=== PATIENT | female | born 1965 | race African-American/Black ===

== ENCOUNTER 2017-05-12 22:12 | Inpatient (IN) | payer BC, OTHER ==
[~2017-05-12] VITALS: Ht 157.5 cm; Wt 73.3 kg
--- NOTE | ~2017-05-12 | EKG ---
[address] [address] ELECTROCARDIOGRAM REPORT Name: MARILEE MOTA Room #: 236-P ADM IN M.R.#: [id number] Admission: 05/13/17 Attend Phys: Abel Bains MD Discharge: Date of : 65 Report #: [id number] THIS REPORT FOR: //name// [facility] Test Date: 2017-05-15 Test Time: 15:08:17 Pat Name: MARILEE MOTA Department: Room: 236 Gender: F Matrix Inspector: Linden CISNEROS : 1965 Requested By: Taylor Estrella Order Number: [id number] MD: Yadiel Mahmood Measurements Intervals [place] Rate: 91 P: 58 ND: 160 QRS: -17 QRSD: 132 T: 31 QT: 395 QTc: 487 Interpretive Statements Sinus rhythm Right bundle branch block, new Compared to ECG 05/14/2017 09:08:41 Right bundle-branch block now present Electronically Signed On 05-15-2017 15:51:53 PLASTICS SEASONER OPERATOR by Yadiel Mahmood [email or web address] <ELECTRONICALLY SIGNED> By: Yadiel Mahmood MD 05/15/17 1551 1508 1508 Yadiel Mahmood MD /AMANDO
--- NOTE | ~2017-05-12 | HC ---
[facility] [place] [address] CONSULTATION Name: MARILEE MOTA Room #: 211-P [facility] IN M.R.#: [id number] Admission: 05/13/17 Attend Phys: Abel Bains MD Discharge: Date of : 65 Report #: [id number] THIS REPORT FOR: //name// CC: Liam Bains DATE OF SERVICE: 05/13/2017 REASON FOR CONSULTATION: Chest pain. HISTORY OF PRESENT ILLNESS: The patient is a 52-year-old woman with history of hypertension, dyslipidemia and reflux disease. She exercises regularly, although found that last week on Monday when she was on her [place] track, she developed midsternal chest pain radiating to her arms. She stopped exercising, laid down and the pain resolved. She decided not to exercise after that, although yesterday had the same recurrent pain while carrying groceries in from the grocery store. She sat down and the pain resolved. Pain waxed and waned throughout the evening last night, it became more severe around 10:00-11:00 p.m. and paramedics were summoned. She was given aspirin and several sequential nitroglycerin tablets with relief of her pain. Her troponin was minimally elevated at 0.07. She denies heart failure symptoms including orthopnea, paroxysmal nocturnal dyspnea, or lower extremity edema. She denies palpitations, near syncope or syncope. ALLERGIES: No known drug allergies. MEDICATIONS: Include amlodipine 10 mg daily, omeprazole 10 mg daily, phentermine 37.5 mg daily. PAST MEDICAL HISTORY: Medical records have been reviewed and include a history of hypertension, dyslipidemia, reflux disease. SOCIAL HISTORY: She is a former smoker. She works as a teacher. . FAMILY HISTORY: Notable for mother at 41 of heart related problems. Sister at 42 from complications related to diabetes. REVIEW OF SYSTEMS: All systems negative except as that noted above. PHYSICAL EXAMINATION: GENERAL: A pleasant woman who is pain free. VITAL SIGNS: Blood pressure is 147/90, heart rate of 84 and regular. She is afebrile, 5 feet 2 inches tall, 143 pounds. HEENT: There are neither xanthelasma, subcutaneous xanthomata, oral mucosal or digital cyanosis or kyphoscoliosis present. CHEST: Clear to auscultation and percussion. [facility] [address] [place] [address] CONSULTATION Name: MARILEE MOTA Room #: 211-P [facility] IN M.R.#: [id number] Admission: 05/13/17 Attend Phys: Abel Bains MD Discharge: Date of : 65 Report #: [id number] CARDIAC: Reveals a regular rate and rhythm with normal S1, S2. No murmurs or rubs. ABDOMEN: Soft and nontender. EXTREMITIES: Without cyanosis, clubbing or edema. Radial pulses are 2+. NEUROLOGIC: She is alert with a nonfocal exam. LABORATORY DATA: EKG demonstrates sinus rhythm with fairly diffuse nonspecific ST-segment changes. Sodium is 140, potassium 2.9 and has been supplemented. Creatinine 0.9, glucose 139. Troponin 0.07. White count 5.5, hemoglobin 14, hematocrit 41, platelet count 243. Chest x-ray is normal. IMPRESSION: 1. Chest pain consistent with unstable angina. 2. Hypertension. 3. Dyslipidemia. 4. Elevated blood sugar. 5. Family history of premature coronary artery disease. RECOMMENDATIONS: 1. Therapy with anticoagulants and antiplatelets; nitrates, beta blockade. 2. Coronary angiography. The procedure was discussed in detail including its associated risks. After a thorough discussion of the procedure, its risks and alternatives and after answering her questions, she is agreeable to proceeding. Thank you for asking me to participate in her care. <ELECTRONICALLY SIGNED> By: Holland Horowitz MD, FACC 05/15/17 0907 0903 1122 Holland Horowitz MD, FACC /nt
--- NOTE | ~2017-05-12 | EKG ---
[address] [address] ELECTROCARDIOGRAM REPORT Name: MARILEE MOTA Room #: 211-P ADM IN M.R.#: [id number] Admission: 05/13/17 Attend Phys: Abel Bains MD Discharge: Date of : 65 Report #: [id number] THIS REPORT FOR: //name// [facility] ED Test Date: 2017-05-12 Test Time: 22:39:53 Pat Name: MARILEE MOTA Department: Room: 211 Gender: F Rotor Balancer: BARRETT : 1965 Requested By: Mart Morales Order Number: [id number] MD: Holland Horowitz Measurements Intervals [place] Rate: 75 P: 38 GA: 187 QRS: 22 QRSD: 85 T: 49 QT: 439 QTc: 491 Interpretive Statements Sinus rhythm Minimal ST depression, anterolateral leads Borderline prolonged QT interval Compared to ECG 07/26/2015 19:40:54 ST (T wave) deviation now present Electronically Signed On 05-13-2017 14:38:55 BEET TOPPER by Holland Horowitz [email or web address] <ELECTRONICALLY SIGNED> By: Holland Horowitz MD, [facility] 05/13/17 1438 2239 Holland Horowitz MD, [facility] /EPI
--- NOTE | ~2017-05-12 | EKG ---
[address] [address] ELECTROCARDIOGRAM REPORT Name: MARILEE MOTA Room #: 236-P ADM IN M.R.#: [id number] Admission: 05/13/17 Attend Phys: Liam Barr DO Discharge: Date of : 65 Report #: [id number] THIS REPORT FOR: //name// [facility] Test Date: 2017-05-16 Test Time: 07:02:39 Pat Name: MARILEE MOTA Department: Room: 236 P Gender: F Semiautomatic Stitcher Operator: YAMEL : 1965 Requested By: Taylor Estrella Order Number: [id number] MD: Yadiel Mahmood Measurements Intervals [place] Rate: 89 P: [place]: QRS: -43 QRSD: 116 T: 34 QT: 408 QTc: 497 Interpretive Statements Sinus rhythm Incomplete right bundle branch block Inferolateral infarct, old Compared to ECG 05/15/2017 15:08:17 Electronically Signed On 05-16-2017 8:13:34 PANTOMIMIST by Yadiel Mahmood [email or web address] <ELECTRONICALLY SIGNED> By: Yadiel Mahmood MD 05/16/17 08 1 1 Yadiel Mahmood MD /AMANDO
--- NOTE | ~2017-05-12 | 2DMMODE ---
[facility] [address] [place] [address] 2 D/M-MODE ECHOCARDIOGRAM Name: MARILEE MOTA Room #: 211-P ADM IN .R.#: [id number] Admission: 05/13/17 Attend Phys: Abel Bains MD Discharge: Date of : 65 Date of Service: 05/13/17 1418 Report #: [id number] THIS REPORT FOR: //name// APPROVED REPORT Study performed: 05/13/2017 09:42:59 EXAM: Comprehensive 2D, Doppler, and color-flow Echocardiogram Patient Location: Bedside Room #: 211 Status: routine BSA: 1.67 HR: 94 bpm BP: 147/94 mmHg Other Information Study Quality: Adequate Indications Hypertension/HDD Previous tobacco, Hyperlipidemia, Shortness of Air 2D Dimensions LVEF(%): 61.95 (>50%) IVSd: 8.03 (7-11mm) LVOT Diam: 19.45 (18-24mm) LVDd: 36.76 mm PWd: 8.34 (7-11mm) Ascending Ao: 23.79 (22-36mm) LVDs: 24.75 (25-40mm) Left Atrium: 27.66 (27-40mm) Aortic Root: 25.68 mm IVC: 1.60 mm Ramos's LVEF: 61.95 % Volumes Left Atrial Volume (Systole) Single Plane 4CH: 24.48 mL Aortic Valve AoV Peak Lex.: 1.40 m/s AO Peak Gr.: 7.81 mmHg LVOT Max P.78 mmHg LVOT Max V: 1.09 m/s JOSEFA Vmax: 2.32 cm2 Mitral Valve E/A Ratio: 1.1 MV Decel. Time: 170.92 ms [facility] [place] [address] 2 D/M-MODE ECHOCARDIOGRAM Name: MARILEE MOTA Room #: [facility] IN ..#: [id number] Admission: 05/13/17 Attend Phys: Abel Bains MD Discharge: Date of : 65 Date of Service: 05/13/17 1418 Report #: [id number] MV E Max Lex.: 0.79 m/s MV A Lex.: 0.72 m/s MV PHT: 49.57 ms IVRT: 87.66 ms TDI E/Lateral E': 6.58 Lateral E' Lex.: 0.12 m/s Pulmonary Vein P Vein S: 0.60 m/s P Vein A: 0.37 m/s P Vein D: 0.32 m/s P Vein A Dur.: 143.0 msec P Vein S/D Ratio: 1.88 Left Ventricle The left ventricle is normal size. Regional wall motion is not well visualized but grossly normal. There is normal left ventricular wall thickness. The left ventricular systolic function is normal. The left ventricular ejection fraction is within the normal range. LVEF is 55-60%. Grade II - pseudonormal filling dynamics. Right Ventricle The right ventricle is normal size. The right ventricular systolic function is normal. Atria The left atrium size is normal. The right atrium size is normal. Aortic Valve The aortic valve is normal in structure. No aortic regurgitation is present. There is no aortic valvular stenosis. Mitral Valve The mitral valve is normal in structure. There is no mitral valve regurgitation noted. No evidence of mitral valve stenosis. Tricuspid Valve The tricuspid valve is normal in structure. There is no tricuspid valve regurgitation noted. Pulmonic Valve The pulmonary valve is normal in structure. There is no pulmonic valvular regurgitation. [facility] [address] [address] 2 D/M-MODE ECHOCARDIOGRAM Name: MARILEE MOTA Room #: 211-P [facility] IN [facility]#: [id number] Admission: 05/13/17 Attend Phys: Abel Bains MD Discharge: Date of : 65 Date of Service: 05/13/17 1418 Report #: [id number] The aortic root is normal in size. IVC is not well visualized. Pericardium There is no pericardial effusion. <Conclusion> The left ventricular systolic function is normal. Regional wall motion is not well visualized but grossly normal. LVEF is 55-60%. Grade II - pseudonormal filling dynamics. The aortic valve is normal in structure. No aortic regurgitation or stenosis The mitral valve is normal in structure. No mitral valve regurgitation noted. Pulmonary artery pressure could not be reliably ascertained There is no pericardial effusion. <ELECTRONICALLY SIGNED> By: Holland Horowitz MD, [facility] 05/13/17 1418 1418 1418 Holland Horowitz MD, FACC /INF
--- NOTE | ~2017-05-12 | CATHLAB ---
[facility] [place] [address] INVASIVE PROCEDURE REPORT Name: MARILEE MOTA Room #: 211-P ADM IN ..#: [id number] Admission: 05/13/17 Attend Phys: Abel Bains MD Discharge: Date of : 65 Date of Service: 05/15/17 0842 Report #: [id number] THIS REPORT FOR: //name// APPROVED REPORT Patient Details Patient Status: In-Patient Room #: The patient is a 52 year-old female Event Personnel Holland Horowitz Gm/Svp Global Publisher Business, Bessie Borja, Iqra Galindo Barrett, Susan RN RN, Norris Yates clinical biochemical geneticist Performed Art Access - R femoral artery* 96120 Initial Mod Sed Same Phys/QHP Gr5y 720879 Left Heart Cath w/or w/o Coronaries [id number] [facility] Hemostasis w/ Mynx Procedure Narrative The Right Groin^ was infiltrated with 1% Lidocaine subcutaneous anesthesia. A PINNACLE 6FR Sheath #[id number] sheath was inserted into the RFA^. Coronary angiography was performed using coronary diagnostic catheters. The right coronary system was accessed and visualized with a JR4 catheter. The left coronary system was accessed and visualized with a JL4 catheter. The left ventricle was accessed and visualized with a Pigtail catheter. Left ventricular/Aortic Valve gradient assessed via catheter pullback. Left ventriculogram was performed in 30 degree projection. Closure device was deployed with a 6 Fr MYNXGRIP 6/7F #[id number]. The patient tolerated the procedure well and there were no complications associated with the procedure. There was no hematoma. Intraoperative Conscious Sedation Sedation start time: 10:46 Case end Time: 11:08 Fentanyl 25 mcg Versed 2 mg Fluoro Time: 1.52 minutes Dose: DAP 2133.60 cGycm2 271 mGy Contrast Type and Amount: Omnipaque 100 ml Coronary Angiography The patient's coronary anatomy is right dominant. [facility] [address] [place] [address] INVASIVE PROCEDURE REPORT Name: MARILEE MOTA Room #: 211-P [facility] IN ..#: [id number] Admission: 05/13/17 Attend Phys: Abel Bains MD Discharge: Date of : 65 Date of Service: 05/15/17 0842 Report #: [id number] Diagnostic Cath Left Main Moderate in size and angiographically normal LAD Severe, long variable 75-90% mid LAD stenosis just after the first septal perforating branch Diagonal 1 Small, bifurcating proximally with mild plaquing Diagonal 2 Small to moderate with a proximal 80% stenosis Circumflex Sequential 90-95% proximal to mid stenoses Ostial 60% circumflex stenosis OM1 Single, large marginal branch with 30-40% proximal plaquing Right Coronary Right coronary dominant with proximal 20-30% plaquing. 70% mid vessel stenosis R PDA Mild plaquing RPLV Mild plaquing Left Ventriculography The left ventricle is normal in size with normal contractility. The left ventricular ejection fraction is estimated to be 55-60%. Left ventricular wall motion abnormalities are not present. There is no mitral insufficiency. Hemodynamics The aortic pressure is 183/82 mmHg with a mean of 122 mmHg. The left ventricular pressure is 179/15 mmHg with a mean of mmHg. The left ventricular end diastolic pressure is 39 mmHg. Conclusion 1. Normal global and regional left ventricular systolic function 2. Severe multivessel coronary disease Recommendations Aggressive Medical Therapy CABG <ELECTRONICALLY SIGNED> By: Holland Horowitz MD, FACC 05/15/1742 1 1 Holland Horowitz MD, FACC /INF
--- NOTE | ~2017-05-12 | EKG ---
[address] [address] ELECTROCARDIOGRAM REPORT Name: MARILEE MOTA Room #: 211-P ADM IN M.R.#: [id number] Admission: 05/13/17 Attend Phys: Abel Bains MD Discharge: Date of : 65 Report #: [id number] THIS REPORT FOR: //name// [facility] Test Date: 2017-05-14 Test Time: 09:08:41 Pat Name: MARILEE MOTA Department: Room: 211 P Gender: F Transportation Maintenance Operator: ELA : 1965 Requested By: Taylor Estrella Order Number: [id number] MD: Holland Horowitz Measurements Intervals [place] Rate: 83 P: 57 [place]: 171 QRS: 15 QRSD: 108 T: -4 QT: 414 QTc: 487 Interpretive Statements Sinus rhythm Minimal ST depression Borderline prolonged QT interval Compared to ECG 05/13/2017 08:19:21 No significant change was found Electronically Signed On 05-14-2017 11:32:48 AUDIO VISUAL ENGINEER by Holland Horowitz [email or web address] <ELECTRONICALLY SIGNED> By: Holland Horowitz MD, [facility] 05/14/17 1132 0908 0908 Holland Horowitz MD, [facility] /EPI
--- NOTE | ~2017-05-12 | EKG ---
[address] [address] ELECTROCARDIOGRAM REPORT Name: MARILEE MOTA Room #: 211-P ADM IN M.R.#: [id number] Admission: 05/13/17 Attend Phys: Abel Bains MD Discharge: Date of : 65 Report #: [id number] THIS REPORT FOR: //name// [facility] Test Date: 2017-05-13 Test Time: 08:19:21 Pat Name: MARILEE MOTA Department: Room: 211 Gender: F Food Production Manager: ELODIA : 1965 Requested By: Alona Luke Order Number: [id number] MD: Holland Horowitz Measurements Intervals [place] Rate: 82 P: 36 [place]: 149 QRS: 2 QRSD: 83 T: 44 QT: 384 QTc: 449 Interpretive Statements Sinus rhythm Probable left atrial enlargement Probable LVH with secondary repol abnrm Compared to ECG 07/26/2015 19:40:54 No significant change was found Electronically Signed On 05-13-2017 14:42:14 AUTOMOTIVE TITLE CLERK by Holland Horowitz [email or web address] <ELECTRONICALLY SIGNED> By: Holland Horowitz MD, [facility] 05/13/17 1442 8 8 Holland Horowitz MD, [facility] /EPI
[~2017-05-12 22:12] MED LIST: ATENOLOL 25 MG25 M1 PO; ATENOLOL 50MG T50 M1 PO; DARVOCET-N 1001 EACH PO; DOXYCYCLINE 10100 MG PO; NAPROSYN500 MG PO; NORCO 5-325 TA1 EACH PO; OMEPRAZOLE10 MG PO; PROVENTIL HFA6.7 G1 INH; RANITIDINE 150150 M1 PO; TUSSIONEX PENN473 ML PO; ULTRAM 50MG TAB50 MG PO; ZANTAC 150MG T150 M1 PO; ZOFRAN ODT4 MG PO; ZOFRAN4 MG PO; ZPAK PO
[2017-05-12 22:13] VITALS: BP 173/100
[2017-05-12] MEDS ORDERED: NORVASC5 MG PO (22:22)
[2017-05-12] MEDS ORDERED: ADIPEX-P37.5 MG PO (22:23)
[2017-05-12 22:46] LABS: ABSOLUTE NEUTROPHILS 2.6 thou/uL (1.4-8.2); BASOPHILS 0.7 % (0.0-2.0); EOSINOPHILS 3.4 % (0.0-3.0); HEMATOCRIT 41.8 % (37.0-47.0); LYMPHOCYTES 38.9 % (24.0-44.0); MCH 26.8 pg (26.0-34.0); MCHC 33.4 g/dL (28.0-37.0); MCV 80.3 fL (80.0-100.0); MONOCYTES 9.4 % (1.0-8.0); PLATELET COUNT 243 thou/uL (150-400); POLYS 47.6 % (36.0-66.0); RDW 14.4 % (10.5-14.5); WBC 5.5 thou/uL (4.0-11.0)
[2017-05-12 22:51] LABS: CALCIUM 9.2 mg/dL (8.5-10.1); CREATININE 0.9 mg/dL (0.6-1.0)
[2017-05-12 22:52] LABS: POTASSIUM 2.9 mmol/L (3.5-5.1)
[2017-05-12 22:59] LABS: TROPONIN-I 0.07 ng/mL (<0.06)
[2017-05-13] VITALS (19 sets, daily range): BP systolic 98–161; BP diastolic 53–98
[2017-05-13] MEDS ORDERED: NORVASC10 MG PO (01:40)
[2017-05-13] MEDS ORDERED: NAPROSYN500 MG PO (03:21)
[2017-05-13 11:24] LABS: ANION GAP 8 mmol/L (7-16); BUN 15 mg/dL (7-18); CALCIUM 8.7 mg/dL (8.5-10.1); CHLORIDE 105 mmol/L (98-107); CHOLESTEROL 218 mg/dL (<200); CO2 26 mmol/L (21-32); CREATININE 0.8 mg/dL (0.6-1.0); GLUCOSE 106 mg/dL (74-106); HDL CHOLESTEROL 55 mg/dL (>40); LDL CHOLESTEROL 159 mg/dL (<100); SODIUM 139 mmol/L (136-145); TRIGLYCERIDE 24 mg/dL (<150); VLDL 5 mg/dL (<40)
[2017-05-13 11:31] LABS: POTASSIUM 3.9 mmol/L (3.5-5.1)
[2017-05-13 11:33] LABS: TROPONIN-I 0.63 ng/mL (<0.06)
[2017-05-14] VITALS (8 sets, daily range): BP systolic 98–134; BP diastolic 43–90
[2017-05-14 02:06] LABS: GLYCOHEMOGLOBIN (HGB A1C) 5.4 % (4.8-5.6)
[2017-05-14 06:05] LABS: HEMATOCRIT 39.8 % (37.0-47.0); HEMOGLOBIN 12.7 gm/dL (12.0-15.0); MCHC 31.9 g/dL (28.0-37.0); MCV 81.6 fL (80.0-100.0); RBC 4.87 mil/uL (4.20-5.00); RDW 14.9 % (10.5-14.5); WBC 4.9 thou/uL (4.0-11.0)
[2017-05-14 06:16] LABS: APTT 25.9 Seconds (24.5-32.8); PROTIME 10.1 Seconds (9.3-11.4)
[2017-05-14 06:27] LABS: CALCIUM 8.6 mg/dL (8.5-10.1); CREATININE 0.9 mg/dL (0.6-1.0); POTASSIUM 4.6 mmol/L (3.5-5.1)
[2017-05-14 23:58] LABS: URINE BILIRUBIN NEGATIVE (Negative); URINE BLOOD TRACE (Negative); URINE CLARITY CLEAR; URINE COLOR YELLOW; URINE GLUCOSE-RANDOM* NEGATIVE (Negative); URINE KETONES NEGATIVE (Negative); URINE NITRITE-REFLEX NEGATIVE (Negative); URINE PROTEIN (DIPSTICK) NEGATIVE (Negative); URINE SPECIFIC GRAVITY >= 1.030 (1.005-1.035); URINE UROBILINOGEN 0.2 E.U./dl (0.2-1.0)
[2017-05-15] VITALS (11 sets, daily range): BP systolic 88–142; BP diastolic 66–99
[2017-05-15 00:01] LABS: URINE LEUKOCYTES-REFLEX TRACE (Negative)
[2017-05-15 12:25] LABS: MCHC 32.8 g/dL (28.0-37.0); WBC 7.3 thou/uL (4.0-11.0)
[2017-05-15 12:27] LABS: MCH 26.4 pg (26.0-34.0); MCV 80.7 fL (80.0-100.0); RBC 2.61 mil/uL (4.20-5.00); RDW 13.9 % (10.5-14.5)
[2017-05-15 12:28] LABS: HEMATOCRIT 21.1 % (37.0-47.0); HEMOGLOBIN 6.9 gm/dL (12.0-15.0)
[2017-05-15 12:42] LABS: INR 1.6; PROTIME 15.9 Seconds (9.3-11.4)
[2017-05-15 12:43] LABS: APTT 26.7 Seconds (24.5-32.8); FIBRINOGEN 153.6 mg/dL (210-360)
[2017-05-15 13:22] LABS: POC BE 0 mmol/L (-2.0 to +3.0); POC CA IONIZED 4.6 mg/dL (4.5-5.3); POC GLUCOSE 134 mg/dL (70-99); POC HCO3 25.9 mmol/L (22.0-26.0); POC HEMOGLOBIN 11.6 g/dL (12.0-15.0); POC POTASSIUM 3.6 mmol/L (3.5-5.1); POC SODIUM 140 mmol/L (136-145); POC pCO2 45.5 mmHg (35.0-45.0); POC pH 7.362 (7.360-7.450)
[2017-05-15 13:22] LABS: POC BE 3 mmol/L (-2.0 to +3.0); POC CA IONIZED 4.5 mg/dL (4.5-5.3); POC GLUCOSE 109 mg/dL (70-99); POC HCO3 25.7 mmol/L (22.0-26.0); POC HEMOGLOBIN 11.9 g/dL (12.0-15.0); POC POTASSIUM 3.8 mmol/L (3.5-5.1); POC SODIUM 139 mmol/L (136-145); POC pCO2 32.7 mmHg (35.0-45.0); POC pH 7.504 (7.360-7.450)
[2017-05-15 13:22] LABS: POC BE 1 mmol/L (-2.0 to +3.0); POC CA IONIZED 4.1 mg/dL (4.5-5.3); POC GLUCOSE 146 mg/dL (70-99); POC HCO3 25.8 mmol/L (22.0-26.0); POC HEMOGLOBIN 7.8 g/dL (12.0-15.0); POC POTASSIUM 4.6 mmol/L (3.5-5.1); POC SODIUM 138 mmol/L (136-145); POC pCO2 41.8 mmHg (35.0-45.0); POC pH 7.398 (7.360-7.450)
[2017-05-15 13:22] LABS: POC BE 1 mmol/L (-2.0 to +3.0); POC CA IONIZED 7.1 mg/dL (4.5-5.3); POC GLUCOSE 135 mg/dL (70-99); POC HEMOGLOBIN 6.8 g/dL (12.0-15.0); POC POTASSIUM 3.9 mmol/L (3.5-5.1); POC SODIUM 139 mmol/L (136-145); POC pCO2 34.9 mmHg (35.0-45.0); POC pH 7.463 (7.360-7.450)
[2017-05-15 13:22] LABS: POC BE -3 mmol/L (-2.0 to +3.0); POC CA IONIZED 5.7 mg/dL (4.5-5.3); POC GLUCOSE 131 mg/dL (70-99); POC HCO3 21.2 mmol/L (22.0-26.0); POC HEMOGLOBIN 8.8 g/dL (12.0-15.0); POC POTASSIUM 3.6 mmol/L (3.5-5.1); POC SODIUM 140 mmol/L (136-145); POC pCO2 32.6 mmHg (35.0-45.0); POC pH 7.421 (7.360-7.450)
[2017-05-15 13:22] LABS: POC BE 0 mmol/L (-2.0 to +3.0); POC CA IONIZED 4.2 mg/dL (4.5-5.3); POC GLUCOSE 147 mg/dL (70-99); POC HEMOGLOBIN 8.5 g/dL (12.0-15.0); POC POTASSIUM 4.3 mmol/L (3.5-5.1); POC SODIUM 140 mmol/L (136-145); POC pCO2 39.3 mmHg (35.0-45.0); POC pH 7.411 (7.360-7.450)
[2017-05-15 13:22] LABS: POC BE -1 mmol/L (-2.0 to +3.0); POC CA IONIZED 3.9 mg/dL (4.5-5.3); POC GLUCOSE 143 mg/dL (70-99); POC HCO3 24.1 mmol/L (22.0-26.0); POC HEMOGLOBIN 8.8 g/dL (12.0-15.0); POC POTASSIUM 4.6 mmol/L (3.5-5.1); POC SODIUM 139 mmol/L (136-145); POC pCO2 38.9 mmHg (35.0-45.0)
[2017-05-15 13:22] LABS: POC BE -4 mmol/L (-2.0 to +3.0); POC GLUCOSE 143 mg/dL (70-99); POC HCO3 20.9 mmol/L (22.0-26.0); POC HEMOGLOBIN 8.8 g/dL (12.0-15.0); POC POTASSIUM 4.5 mmol/L (3.5-5.1); POC SODIUM 139 mmol/L (136-145); POC pCO2 36.2 mmHg (35.0-45.0)
[2017-05-15 14:13] LABS: BE(vivo) -3.4 mmol/L (-2 to +3); HCO3 20.5 mmol/L (22.0-26.0); PCO2 32.9 mmHg (35.0-45.0); PO2 100.5 mmHg (80.0-100.0); pH 7.412 (7.360-7.450); sO2 97.7 % (92.0-98.0)
[2017-05-15 14:24] LABS: HEMATOCRIT 30.9 % (37.0-47.0); MCHC 32.3 g/dL (28.0-37.0); MCV 80.6 fL (80.0-100.0); RBC 3.83 mil/uL (4.20-5.00); RDW 14.2 % (10.5-14.5); WBC 15.3 thou/uL (4.0-11.0)
[2017-05-15 14:41] LABS: CALCIUM 9.9 mg/dL (8.5-10.1); CREATININE 0.8 mg/dL (0.6-1.0); MAGNESIUM 2.8 mg/dL (1.8-2.4); POTASSIUM 3.9 mmol/L (3.5-5.1)
[2017-05-15 16:40] LABS: APTT 30.1 Seconds (24.5-32.8); INR 1.1; PROTIME 11.7 Seconds (9.3-11.4)
[2017-05-15 17:27] LABS: BE(vivo) -2.9 mmol/L (-2 to +3); HCO3 20.1 mmol/L (22.0-26.0); PCO2 29.1 mmHg (35.0-45.0); PO2 156.3 mmHg (80.0-100.0); pH 7.458 (7.360-7.450); sO2 99.1 % (92.0-98.0)
[2017-05-15 18:24] LABS: HCO3 20.7 mmol/L (22.0-26.0); PO2 142.3 mmHg (80.0-100.0); pH 7.321 (7.360-7.450); sO2 98.6 % (92.0-98.0)
[2017-05-15 20:52] LABS: BE(vivo) -5.1 mmol/L (-2 to +3); HCO3 20.6 mmol/L (22.0-26.0); PCO2 40.9 mmHg (35.0-45.0); pH 7.321 (7.360-7.450); sO2 92.8 % (92.0-98.0)
[2017-05-16] VITALS (22 sets, daily range): BP systolic 83–127; BP diastolic 62–90
[2017-05-16 05:20] LABS: HEMATOCRIT 29.4 % (37.0-47.0); HEMOGLOBIN 9.7 gm/dL (12.0-15.0); MCH 26.8 pg (26.0-34.0); MCV 81.2 fL (80.0-100.0); RBC 3.62 mil/uL (4.20-5.00); RDW 14.5 % (10.5-14.5)
[2017-05-16 05:25] LABS: BE(vivo) -4.4 mmol/L (-2 to +3); HCO3 22.6 mmol/L (22.0-26.0); PCO2 50.3 mmHg (35.0-45.0); sO2 92.5 % (92.0-98.0)
[2017-05-16 05:31] LABS: INR 1.1; PROTIME 11.4 Seconds (9.3-11.4)
[2017-05-16 05:34] LABS: CALCIUM 8.5 mg/dL (8.5-10.1); MAGNESIUM 2.2 mg/dL (1.8-2.4)
[2017-05-16 05:51] LABS: POTASSIUM 4.6 mmol/L (3.5-5.1)
[2017-05-17] VITALS (8 sets, daily range): BP systolic 93–117; BP diastolic 65–83
[2017-05-17 05:28] LABS: HEMATOCRIT 26.1 % (37.0-47.0); HEMOGLOBIN 8.5 gm/dL (12.0-15.0)
[2017-05-17 05:41] LABS: CREATININE 1.6 mg/dL (0.6-1.0); MAGNESIUM 2.1 mg/dL (1.8-2.4)
[2017-05-18 00:02] VITALS: BP 104/63
[2017-05-18 04:17] VITALS: BP 107/63
[2017-05-18 04:39] LABS: ABSOLUTE NEUTROPHILS 8.3 thou/uL (1.4-8.2); BASOPHILS 0.3 % (0.0-2.0); EOSINOPHILS 0.2 % (0.0-3.0); HEMATOCRIT 24.5 % (37.0-47.0); LYMPHOCYTES 10.9 % (24.0-44.0); MCH 26.5 pg (26.0-34.0); MCHC 32.7 g/dL (28.0-37.0); MCV 80.8 fL (80.0-100.0); MONOCYTES 7.9 % (1.0-8.0); PLATELET COUNT 156 thou/uL (150-400); POLYS 80.7 % (36.0-66.0); RBC 3.03 mil/uL (4.20-5.00); RDW 14.6 % (10.5-14.5); WBC 10.3 thou/uL (4.0-11.0)
[2017-05-18 04:47] LABS: CALCIUM 7.8 mg/dL (8.5-10.1); CREATININE 1.2 mg/dL (0.6-1.0); POTASSIUM 3.6 mmol/L (3.5-5.1)
[2017-05-18 15:19] VITALS: BP 123/79
[2017-05-18 20:05] VITALS: BP 125/78
[2017-05-19 05:07] VITALS: BP 136/84
[2017-05-19 07:35] VITALS: BP 142/90
[2017-05-19 09:07] LABS: ABSOLUTE NEUTROPHILS 9.1 thou/uL (1.4-8.2); BASOPHILS 0.2 % (0.0-2.0); EOSINOPHILS 0.2 % (0.0-3.0); HEMATOCRIT 24.6 % (37.0-47.0); LYMPHOCYTES 14.5 % (24.0-44.0); MCH 26.3 pg (26.0-34.0); MCHC 32.5 g/dL (28.0-37.0); MCV 80.7 fL (80.0-100.0); MONOCYTES 6.9 % (1.0-8.0); PLATELET COUNT 207 thou/uL (150-400); POLYS 78.2 % (36.0-66.0); RBC 3.05 mil/uL (4.20-5.00); RDW 14.5 % (10.5-14.5); WBC 11.6 thou/uL (4.0-11.0)
[2017-05-19] MEDS ORDERED: ASPIRIN EC325 M1 PO (10:18)
[2017-05-19] MEDS ORDERED: LOPRESSOR25 PO (10:18)
[2017-05-19] MEDS ORDERED: LIPITOR40 MG PO (10:18)
[2017-05-19 11:29] VITALS: BP 104/68
[2017-05-19 15:15] VITALS: BP 140/82
[2017-05-19 19:24] VITALS: BP 129/78
[2017-05-20] VITALS (7 sets, daily range): BP systolic 113–134; BP diastolic 48–84
[2017-05-20 05:53] LABS: ABSOLUTE NEUTROPHILS 6.1 thou/uL (1.4-8.2); BASOPHILS 0.2 % (0.0-2.0); EOSINOPHILS 0.7 % (0.0-3.0); HEMATOCRIT 23.9 % (37.0-47.0); HEMOGLOBIN 7.8 gm/dL (12.0-15.0); LYMPHOCYTES 19.8 % (24.0-44.0); MCH 26.4 pg (26.0-34.0); MCHC 32.8 g/dL (28.0-37.0); MCV 80.4 fL (80.0-100.0); MONOCYTES 8.7 % (1.0-8.0); PLATELET COUNT 223 thou/uL (150-400); POLYS 70.6 % (36.0-66.0); RBC 2.97 mil/uL (4.20-5.00); RDW 14.5 % (10.5-14.5); WBC 8.6 thou/uL (4.0-11.0)
[2017-05-20 05:55] LABS: HEMATOCRIT 23.5 % (37.0-47.0); HEMOGLOBIN 7.8 gm/dL (12.0-15.0)
[2017-05-20 06:02] LABS: CALCIUM 8.2 mg/dL (8.5-10.1); CREATININE 0.9 mg/dL (0.6-1.0); POTASSIUM 3.4 mmol/L (3.5-5.1)
[2017-05-21 05:00] VITALS: BP 134/72
[2017-05-21 05:43] LABS: BASOPHILS 0.5 % (0.0-2.0); EOSINOPHILS 1.3 % (0.0-3.0); HEMATOCRIT 23.4 % (37.0-47.0); HEMOGLOBIN 7.6 gm/dL (12.0-15.0); MCH 26.3 pg (26.0-34.0); MCHC 32.6 g/dL (28.0-37.0); MCV 80.7 fL (80.0-100.0); MONOCYTES 10.7 % (1.0-8.0); PLATELET COUNT 241 thou/uL (150-400); POLYS 63.5 % (36.0-66.0); RBC 2.89 mil/uL (4.20-5.00); RDW 14.4 % (10.5-14.5); WBC 7.8 thou/uL (4.0-11.0)
[2017-05-21 05:51] LABS: CALCIUM 8.5 mg/dL (8.5-10.1); CREATININE 0.9 mg/dL (0.6-1.0)
[2017-05-21] MEDS ORDERED: OXYCODONE HCL 55 MG PO (07:57)
[2017-05-21] MEDS ORDERED: ZOFRAN ODT4 MG PO (07:58)
[2017-05-21 09:59] VITALS: BP 134/80
[2017-05-22] MEDS ORDERED: ALEVE220 MG PO (18:56)
== END 2017-05-21 10:34 | disposition home or self-care (01) | DRG 236 ==
LOC: ER 22:12 → ICU 05-13 00:56 → 2N 05-13 00:56 → EROBS 05-13 00:56 → 2N 05-13 01:58 → ICU 05-15 14:02 → 2N 05-17 18:40
PROVIDERS: Emergency Medicine; Family Medicine; Hospitalist; Internal Medicine; Nurse Practitioner; Nurse Practitioner Family; Thoracic Surgery (Cardiothoracic Vascular Surgery)
DX: I21.4 Non-ST elevation (NSTEMI) myocardial infarction (principal); D62 Acute posthemorrhagic anemia; N17.9 Acute kidney failure, unspecified; I25.10 Atherosclerotic heart disease of native coronary artery without angina pectoris; E78.5 Hyperlipidemia, unspecified; H53.8 Other visual disturbances; I10 Essential (primary) hypertension; K21.9 Gastro-esophageal reflux disease without esophagitis; E87.6 Hypokalemia; E66.9 Obesity, unspecified; Z68.29 Body mass index [BMI] 29.0-29.9, adult; Z79.899 Other long term (current) drug therapy; Z87.891 Personal history of nicotine dependence; Z83.3 Family history of diabetes mellitus; Z82.49 Family history of ischemic heart disease and other diseases of the circulatory system
CPT/HCPCS: 10078; 10081; 47000; 47001; 47002; 47297; 47405; 48888; 50249; 50409; 50456; 50497; 50668; 51301; 52131; 52314; 53327; 53358; 54118; 56524; 56525; 56526; 56527; 56528; 56529; 56531; 56534; 56639; 56668; 56760; 56898; 62110; 62950; 64029; 65002; 65003; 65020; 65043; 65090; 65120

== ENCOUNTER 2017-05-22 18:37 | Emergency (ER) | payer BC, OTHER ==
[~2017-05-22] VITALS: Ht 157.5 cm; Wt 68.0 kg
[~2017-05-22 18:37] MED LIST changes: +ADIPEX-P37.5 MG PO; +ASPIRIN EC325 M1 PO; +LIPITOR40 MG PO; +LOPRESSOR25 PO; +NORVASC10 MG PO; +NORVASC5 MG PO; +OXYCODONE HCL 55 MG PO
[2017-05-22] MEDS ORDERED: ALEVE220 MG PO (18:56)
[2017-05-22 20:03] VITALS: BP 128/91
== END 2017-05-22 20:03 | disposition home or self-care (01) ==
LOC: ER 18:37
DX: Z48.01 Encounter for change or removal of surgical wound dressing (principal); I10 Essential (primary) hypertension; K21.9 Gastro-esophageal reflux disease without esophagitis; E78.5 Hyperlipidemia, unspecified; Z87.891 Personal history of nicotine dependence; Z88.5 Allergy status to narcotic agent

== ENCOUNTER → 2017-06-07 | Outpatient (CLI) | payer BC, OTHER ==
[~2017-06-07] MED LIST changes: +ALEVE220 MG PO
== END ==
LOC: RAD 11:41
DX: I25.10 Atherosclerotic heart disease of native coronary artery without angina pectoris (principal); J98.4 Other disorders of lung; Q79.1 Other congenital malformations of diaphragm; Z95.1 Presence of aortocoronary bypass graft

== ENCOUNTER → 2017-06-09 | Outpatient (CLI) | payer BC, OTHER ==
--- NOTE | ~2017-06-09 | CNG ---
[facility] [address] [place] [address] CYTO-NONGYN REPORT PROCEDURE Name: MARILEE SKY Room #: REG MARTINA [place].Jayce.#: [id number] Admission: 06/09/17 Date of : 65 Discharge: Report #: [id number] Path Case #: [id number] CYTOPATHOLOGY REPORT COLLECTION DATE: 06/09/2017 RECEIVED DATE: 06/09/2017 SUBMITTING PHYS: Taylor Estrella, VICE CHANCELLOR-BC OTHER PHYS: Dr. Liam Bejarano ADDENDUM REPORT (Order Date: 06/14/2017 09:40) ADDENDUM COMMENT: Due to the lymphocytosis of the pleural fluid, flow cytometric immunophenotypic analysis was performed at [facility]. The diagnosis is "no immunophenotypic evidence for non-Hodgkin lymphoma detected". There are 83.7% lymphocytes. Of the lymphocytes, there are 88% T-cells with a CD4/CD8 ratio of 2 and 8% polyclonal B-cells. No CD34+ blasts are detected. No monotypic B-cell population or aberrant loss of T-cell antigen expression is detected. Please see separate flow cytometry report from [facility] ([id number]). There is no evidence of lymphoma. The final diagnosis remains unchanged. (CLW:primitivo; 06/14/2017) Professional services performed by [facility] at [facility] [address], [place] [address] Technical services performed by [facility], [address] [place] [address]. ELECTRONICALLY SIGNED BY: Shobha Fernandez M.D. DATE/TIME:06/14/2017 14:24 CLINICAL HISTORY: Bilateral pleural effusion; bypass SPECIMEN(S) RECEIVED: A.Pleural fluid * * * * * * * * * * * * FINAL DIAGNOSIS: A. Pleural fluid: - Lymphocytosis. - Numerous small mature appearing lymphocytes amongst scattered acute and chronic inflammatory cells and reactive mesothelial cells present. (See comment). COMMENT: Due to the lymphocytosis, the pleural fluid has been sent for flow cytometric immunophenotypic analysis. An addendum report will [address] [address] CYTO-NONGYN REPORT PROCEDURE Name: SVETLANAMARILEE Room #: REG [facility] [id number] Admission: 06/09/17 Date of : 65 Discharge: Report #: [id number] Path Case #: [id number] follow. Clinical and radiographic correlation is recommended. (CLW:primitivo; 06/12/2017) PATHOLOGIST: Shobha Fernandez M.D. REPORT ELECTRONICALLY SIGNED BY: Shobha Fernandez M.D. DATE/TIME: 06/12/2017 21:56 * * * * * * * * * * * * GROSS PATHOLOGY: A. Pleural fluid: The specimen is submitted unfixed, labeled "Yary Sky". Received by the Cytology Department is 25 mL of cloudy reddish orange fluid. One ThinPrep slide and a formalin fixed cell block were prepared. (mm 3.) PUBLIC SERVICE REPRESENTATIVE(S): VADIM Salazar(ASCP)IAC INITIAL CPT CODE(S): A; 90967, 91010 Professional services performed by [facility] at [facility] [address], [place] [address] Technical services performed by [facility] at [address] [place] [address], [address], [place] [address]. [facility] [address] [place] [address], [address] [place] [address] PHONE: [phone] DIRECTOR: Antwan Godoy M.D. * * * END OF REPORT * * *
[2017-06-09 09:10] LABS: CALCIUM 9.2 mg/dL (8.5-10.1); POTASSIUM 4.2 mmol/L (3.5-5.1)
[2017-06-09 09:15] LABS: PROTIME 10.5 Seconds (9.3-11.4)
[2017-06-09 12:06] LABS: BF NUCLEATED CELLS 8006; BF RBC 23272
[2017-06-09 12:07] LABS: CLARITY TURBID; COLOR BROWN; TOTAL VOLUME 60 mL
[2017-06-09 12:43] LABS: BF MACROPHAGE 24; BF NEUTROPHILS 1
[2017-06-09 12:44] LABS: SOURCE RIGHT THORACENTESIS
[2017-06-10 15:12] LABS: BODY FLUID ALBUMIN 2.8 g/dL (()); BODY FLUID AMYLASE 60 U/L (()); BODY FLUID GLUCOSE 90 mg/dL (()); BODY FLUID LDH 233 IU/L (())
== END ==
LOC: LABMALL 08:38 → ULTRA 13:02
PROVIDERS: Nurse Practitioner
DX: R06.02 Shortness of breath (principal); J90 Pleural effusion, not elsewhere classified

== ENCOUNTER → 2017-06-30 | Outpatient (CLI) | payer BC, OTHER | LOC: RAD 09:59 | DX: J90 Pleural effusion, not elsewhere classified (principal); Z95.1 Presence of aortocoronary bypass graft ==

== ENCOUNTER 2017-07-25 16:46 | Emergency (ER) | payer BC, OTHER ==
[~2017-07-25] VITALS: Ht 157.5 cm; Wt 65.8 kg
== END 2017-07-25 18:06 | disposition home or self-care (01) ==
LOC: ER 16:46
DX: M79.605 Pain in left leg (principal); I10 Essential (primary) hypertension; K21.9 Gastro-esophageal reflux disease without esophagitis; E78.5 Hyperlipidemia, unspecified; Z87.891 Personal history of nicotine dependence; Z88.5 Allergy status to narcotic agent

== ENCOUNTER 2019-05-11 08:34 | Emergency (ER) | payer BC, OTHER ==
[~2019-05-11] VITALS: Ht 157.5 cm; Wt 70.3 kg
--- NOTE | ~2019-05-11 | EKG ---
[facility] [place] [address] ELECTROCARDIOGRAM REPORT Name: MARILEE MOTA Room #: [facility].R.#: [id number] Admission: Attend Phys: Discharge: Date of : 65 Report #: [id number] THIS REPORT FOR: cc: Liam Bejarano Epiphany MD ~ THIS REPORT FOR: //name// [facility] ED Test Date: 2019-05-11 Test Time: 08:36:50 Pat Name: MARILEE MOTA Department: Room: Gender: F Corporate Real Estate Specialist: JULIAN : 1965 Requested By: Mart Morales Order Number: [id number] MD: Measurements Intervals [place] Rate: 77 P: 55 NM: 159 QRS: -44 QRSD: 138 T: 36 QT: 422 QTc: 478 Interpretive Statements Sinus rhythm Probable left atrial enlargement Right bundle branch block Inferior infarct, old Compared to ECG 05/16/2017 07:02:39 Right bundle-branch block now present Incomplete right bundle-branch block no longer present Myocardial infarct finding still present [email or web address] By: 0836 0836 Epiphany Epiphany, /EPI
[2019-05-11] MEDS ORDERED: LASIX 40 MG TAB40 MG PO (08:47)
[2019-05-11 09:18] LABS: BASOPHILS 0.7 % (0.0-2.0); EOSINOPHILS 4.3 % (0.0-3.0); HEMATOCRIT 45.3 % (37.0-47.0); HEMOGLOBIN 14.4 gm/dL (12.0-15.0); LYMPHOCYTES 35.4 % (24.0-44.0); MCH 25.7 pg (26.0-34.0); MCHC 31.8 g/dL (28.0-37.0); MONOCYTES 10.6 % (1.0-8.0); PLATELET COUNT 214 thou/uL (150-400); RBC 5.59 mil/uL (4.20-5.00); RDW 14.3 % (10.5-14.5)
[2019-05-11 09:23] LABS: ANION GAP 7 mmol/L (7-16); BUN 17 mg/dL (7-18); CALCIUM 9.2 mg/dL (8.5-10.1); CHLORIDE 104 mmol/L (98-107); CO2 27 mmol/L (21-32); GLUCOSE 87 mg/dL (74-106); POTASSIUM 3.9 mmol/L (3.5-5.1); SODIUM 138 mmol/L (136-145)
[2019-05-11 09:31] LABS: TROPONIN-I <0.06 ng/mL (<0.06)
[2019-05-11 11:24] VITALS: BP 140/79
== END 2019-05-11 11:30 | disposition home or self-care (01) ==
LOC: ER 08:34
PROVIDERS: Emergency Medicine
DX: R06.00 Dyspnea, unspecified (principal); R07.89 Other chest pain; I10 Essential (primary) hypertension; K21.9 Gastro-esophageal reflux disease without esophagitis; Z88.5 Allergy status to narcotic agent; Z87.891 Personal history of nicotine dependence

== ENCOUNTER → 2019-05-14 | Outpatient (CLI) | payer BC ==
[~2019-05-14] MED LIST changes: +LASIX 40 MG TAB40 MG PO
== END ==
LOC: SJCVCIMAG 13:32
DX: I11.9 Hypertensive heart disease without heart failure (principal); I25.10 Atherosclerotic heart disease of native coronary artery without angina pectoris; I25.5 Ischemic cardiomyopathy; E78.5 Hyperlipidemia, unspecified; Z95.1 Presence of aortocoronary bypass graft; Z78.0 Asymptomatic menopausal state

== ENCOUNTER 2019-07-10 11:36 | Emergency (ER) | payer OTHER ==
[~2019-07-10] VITALS: Ht 165.1 cm; Wt 81.7 kg
[2019-07-10] MEDS ORDERED: TRAMADOL 50 MG50 MG PO (13:08)
[2019-07-10 13:34] VITALS: BP 150/76
== END 2019-07-10 13:35 | disposition home or self-care (01) ==
LOC: ER 11:36
DX: S52.512A Displaced fracture of left radial styloid process, initial encounter for closed fracture (principal); R05 Cough; I10 Essential (primary) hypertension; E78.5 Hyperlipidemia, unspecified; K21.9 Gastro-esophageal reflux disease without esophagitis; Z87.891 Personal history of nicotine dependence; W18.39XA Other fall on same level, initial encounter; Y93.89 Activity, other specified; Y92.89 Other specified places as the place of occurrence of the external cause; Y99.8 Other external cause status

== ENCOUNTER → 2021-05-24 | Outpatient (CLI) | payer BC, OTHER ==
[~2021-05-24] MED LIST changes: +TRAMADOL 50 MG50 MG PO
== END ==
LOC: SJCVCIMAG 07:15
PROVIDERS: ATTEND Internal Medicine
DX: I65.23 Occlusion and stenosis of bilateral carotid arteries (principal); I45.10 Unspecified right bundle-branch block; R06.00 Dyspnea, unspecified; I25.10 Atherosclerotic heart disease of native coronary artery without angina pectoris; I10 Essential (primary) hypertension; E78.5 Hyperlipidemia, unspecified; Z82.49 Family history of ischemic heart disease and other diseases of the circulatory system